=== PATIENT | female | born 1955 | race Caucasian/White ===

== ENCOUNTER → 2016-07-28 | Outpatient (CLI) | payer OTHER ==
[~2016-07-28] MED LIST: NA BICARBONATE 50 MEQ/50 ML VIAL ONE
--- NOTE | 2016-07-28 17:57 | US ---
Ultrasound-Guided Thyroid Biopsy/Fine-Needle Aspiration Indication: Increasing in size 2.9 cm left thyroid nodule Crosscutting Measure #226: Current tobacco user: No. Witnessed Consent: Witnessed informed consent was obtained after the risks, benefits, and alternativ es of ultrasound-guided thyroid biopsy were explained to the patient and all questions were answered. Procedure: Utilizing ultrasound guidance and sterile technique, the neck was prepped with ChloraPrep solution. Lidocaine with bicarbonate was used as local anesthesia. A 25-gauge needle was passed with ultrasound guidance into the left lobe 2.9 cm thyroid nodule 7 times (capillary technique). No hematoma on postprocedure imaging. Patient tolerated the procedure well without immediate complica tions. Discharge instructions were given. Impression: 1. Successful ultrasound-guided fine-needle aspiration of 2.9 cm left thyroid nodule. 2. Please refer to pending pathology report.
== END ==
LOC: FIMAGING 12:20
PROVIDERS: ATTEND Internal Medicine Endocrinology, Diabetes & Metabolism
PROC: 0GBG3ZX Excision of Left Thyroid Gland Lobe, Percutaneous Approach, Diagnostic (ICD-10-PCS; principal; 2016-07-28)
DX: E04.1 Nontoxic single thyroid nodule (principal)

== ENCOUNTER → 2016-08-07 | Outpatient (CLI) | payer OTHER ==
[~2016-08-07] MED LIST changes: +IOPAMIDOL (ISOVUE 370) 100 ML BTL IV ONE; -NA BICARBONATE 50 MEQ/50 ML VIAL ONE
--- NOTE | 2016-08-07 14:01 | CT ---
CT Abdomen and Pelvis Without and With Contrast History: Hematuria. Nonsmoker with no cancer history. Comparison: CT angiogram abdomen from May 03, 2011 and October 21, 2009, abdominal ultrasound of Sep. Technique: Axial unenhanced images were obtained through the abdomen and pelvis. Axial contrast-enhan abdirahman images were obtained through the abdomen with delayed images through the abdomen and pelvis follo wing the uneventful intravenous administration of 99 mL Isovue-370. Dose reduction techniques were ut ilized. Creatinine is 1.0. Findings: Abdomen: Basilar scarring is again noted. Heart size is normal. Fracture of the inferior most sternot cathy wire is again noted. A tiny hypodensity in the anterior left lobe of the liver is unchanged, too small to characterize. Th e gallbladder is surgically absent. The spleen, pancreas, and adrenals are normal. Hypodensities in t he kidneys are too small to characterize, with comparison to the previous CTs limited by variation of bolus timing. Cortical scarring in the superolateral right and lateral left kidney is grossly stable . No renal or ureteral stones are identified. There are no filling defects in the opacified portions of the collecting systems or ureters. Moderate stool is present in the colon. The colon and small bowel are normal caliber without evidence of obstruction. The visible portions of the appendix are normal. There is no free fluid or air. The aorta is normal caliber . The IVC, hepatic, portal, splenic, and superior mesenteric veins are pa tent. Degenerative change is present at the lumbosacral junction with mild spinal canal narrowing. Trace re trolisthesis of L2 on L3 is again noted. Transitional vertebra is present at the lumbosacral junction . Pelvis: No filling defects are identified in the bladder. No pathologically enlarged lymph nodes are identified. Surgical clips are present in the right groin. No aggressive osseous lesions are identif ied. Impression: 1. No visible etiology for the patient's hematuria. 2. Stable bilateral renal cortical scarring. 3. Tiny hypodensities in the kidneys bilaterally, too small to characterize, statistically likely to represent cysts. 4. Constipation. 5. Degenerative change in the spine. 6. Additional findings as above.
== END ==
LOC: CIMAGING 11:26
PROVIDERS: ATTEND Urology
DX: R31.29 Other microscopic hematuria (principal); K59.00 Constipation, unspecified
CPT/HCPCS: 74178-PO; Q9967

== ENCOUNTER → 2016-10-02 | Outpatient (CLI) | payer OTHER | LOC: FCPNEURO 20:00 | PROVIDERS: ATTEND Student in an Organized Health Care Education/Training Program | DX: G47.33 Obstructive sleep apnea (adult) (pediatric) (principal) ==

== ENCOUNTER 2016-10-08 22:31 | Emergency (ER) | payer OTHER ==
[2016-10-08 22:39] VITALS: RESP 16
--- NOTE | 2016-10-08 22:46 | EDPHY ---
H & P Stated Complaint: pt c/o L lateral foot pain - sudden onset, no known inj HPI/ROS: HPI CHIEF COMPLAINT: Left lateral foot pain, unable to bear weight and walk, unknown trauma HISTORY OF PRESENT ILLNESS: This patient very pleasant 60-year-old female significant past medical history for hypertension, aortic valve replacement mechanical, CVA, popliteal stent on the left leg, osteoporosis, arthritis, gallbladder disease and seizures, presents to the emergency room at 11 o'clock at night with left lateral foot pain. Patient states that she started developing pain in left lateral foot around 730 tonight progressively got worse. She does not remember any significant trauma specifically does not remember falling on it does not remember direct trauma. 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 She did not take any pain medicine prior to arrival she is requesting some pain medicine here in the emergency room. Of note on exam she has good DP pulse, good cap refill, warm extremity, there is tenderness palpation over the 4th and 5th metatarsal head. When she goes to bear weight on it she has exquisite pain. She denies knee pain, calf pain, leg swelling. Denies fever rash. Past Medical History: Extensive medical history including 2 open heart surgeries, CVA, aortic valve replacement mechanical, on aspirin, osteoporosis, arthritis, seizures, migraines, hypertension, left popliteal stent Past Surgical History: Multiple cardiac surgeries, left popliteal stent Social History: denies daily use of drugs alcohol tobacco products Family History: noncontributory PCP: [facility]. ARECHIGA REVIEW OF SYSTEMS: A comprehensive 10 point review of systems is otherwise negative aside from elements mentioned in the history of present illness. Exam Constitutional triage nursing summary reviewed, vital signs reviewed, awake/ alert. Eyes normal conjunctivae and sclera, EOMI, PERRLA. HENT normal inspection, atraumatic, moist mucus membranes, no epistaxis, neck supple/ no meningismus, no raccoon eyes. Respiratory clear to auscultation bilaterally, normal breath sounds, no respiratory distress, no wheezing. Cardiovascular rate normal, regular rhythm, no murmur, no edema, distal pulses normal. Gastrointestinal soft, non-tender, no rebound, no guarding, normal bowel sounds, no distension, no pulsatile mass. Genitourinary no CVA tenderness. Musculoskeletal left lower extremity: This is neurovascularly intact warm extremity good DP pulse, good cap refill, no evidence of cold extremity, no popliteal fullness or pain, no knee pain, she does have tender to palpation over the base of the 4th and 5th metatarsal head, there is no significant swelling visualize, ankle joint normal she does have full range of motion. no midline vertebral tenderness, full range of motion, no calf swelling, no tenderness of extremities, no meningismus, good pulses, neurovascularly intact. Skin pink, warm, & dry, no rash, skin atraumatic. Neurologic awake, alert and oriented x 3, AAOx3, moves all 4 extremities equally, motor intact, sensory intact, CN II-XII intact, normal cerebellar, normal vision, normal speech. Psychiatric normal mood/affect. Heme/Lymph/Immune no lymphadenopathy. Differential Diagnosis: Includes but is not limited to in a particular order, musculoskeletal injury, arthritis, metatarsal fracture, hairline fracture, dancer's fracture, no evidence of arterial insufficiency on exam Medical Decision Making: plan for this patient is to be given [place] for pain control here in the emergency room as well as an x-ray of her left foot. Then will re-evaluate. Re-evaluation: ED x-ray left foot: Negative for acute fracture. Imaging reviewed by myself. [id number]; re-evaluation at this time this patient was given [place] however does not have great pain relief. This time I did re-evaluate her she is warm extremity good cap refill, good pulse. She is focally tender over the lateral foot 4th and 5th metatarsal region it hurts worse with plantar flexion and internal rotation is possible she has a foot tendinitis or ligamentous injury. Plan for this patient due to having ongoing pain and IV will be established, will check basic blood work including creatinine of creatinine is good we can give her 30 mg IV Toradol which I think will benefit her from anti-inflammatory 0109: re-evaluation patient is resting comfortably she received 15 mg IV Toradol after she had a normal creatinine. This made a great improvement in her foot pain. She is resting comfortably she is agreeable for discharge. I did explain strict return precautions she understands return emergency room if she has worsening pain significant swelling, fever or redness to her foot. 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 Karen Garcia. She understands to call there tomorrow for an appointment. I will give her limited supply of [place] for acute pain control she be placed on crutches nonweightbearing until she sees Podiatry her x-ray was unrevealing here. It is possible she has a tendinitis. No evidence that there is vascular compromise or infection on exam. Source: Patient - Medical/Surgical History Hx Asthma: No Hx Chronic Respiratory Disease: No Hx Diabetes: No Hx Cardiac Disease: Yes Hx Renal Disease: No Hx Cirrhosis: No Hx Alcoholism: No Hx HIV/AIDS: No Hx Splenectomy or Spleen Trauma: No Other PMH: htn, migrains, heart issues, osteporosis, clotting disorder. two open hear surgeries (aortic valve replacement, and prostetic root). L knee angioplasty, cholecycstecomy.SEIZURE DISORDER/ARTHRITIS - Social History Smoking Status: Never smoked Constitutional: Initial Vital Signs Temperature (C) 36.3 C 10/08/16 22:35 Heart Rate 66 10/08/16 22:35 Respiratory Rate 16 10/08/16 22:35 Blood Pressure 142/73 H 10/08/16 22:35 O2 Sat (%) 93 10/08/16 22:35 O2 Delivery Mode Room Air Allergies/Adverse Reactions: vancomycin [Vancomycin] Allergy (Unknown, Verified 07/13/16 21:46) Home Medications: Medication Instructions Recorded Dabigatran Etexilate Mesylate 150 mg PO 02/14/12 [Pradaxa] Lisinopril 10/26/13 Propranolol HCl PRN 11/29/15 Sertraline HCl 11/29/15 Amoxicillin PRN 05/24/16 Aspirin 81mg (*) 05/24/16 Fluticasone Nasal 05/24/16 Inderal LA 05/24/16 Lamotrigine 05/24/16 Maxalt Ski Production Supervisor 05/24/16 Risedronate Sodium [Actonel] 05/24/16 Docusate Sodium [Colace 100 MG (*)] 10/08/16 Medical Decision Making - Data Points Laboratory Results: Laboratory Results 10/08/16 23:59 10/08/16 23:59 10/08/16 10/08/16 23:59 23:59 WBC 8.46 10^3/uL 10^3/uL (3.80-9.50) RBC 4.37 10^6/uL 10^6/uL (4.18-5.33) Hgb 14.4 g/dL g/dL (12.6-16.3) Hct 42.0 % % (38.0-47.0) MCV 96.1 fL fL (81.5-99.8) MCH 33.0 pg pg (27.9-34.1) MCHC 34.3 g/dL g/dL (32.4-36.7) RDW 12.2 % % (11.5-15.2) Plt Count 152 10^3/uL 10^3/uL (150-400) MPV 11.2 fL fL (8.7-11.7) Neut % (Auto) 64.4 % % (39.3-74.2) Lymph % (Auto) 23.2 % % (15.0-45.0) [place] % (Auto) 10.3 % % (4.5-13.0) Eos % (Auto) 1.2 % % (0.6-7.6) Baso % (Auto) 0.5 % % (0.3-1.7) Nucleat RBC Rel Count 0.0 % % (0.0-0.2) Absolute Neuts (auto) 5.46 10^3/uL 10^3/uL (1.70-6.50) Absolute Lymphs (auto) 1.96 10^3/uL 10^3/uL (1.00-3.00) Absolute Monos (auto) 0.87 10^3/uL H 10^3/uL (0.30-0.80) Absolute Eos (auto) 0.10 10^3/uL 10^3/uL (0.03-0.40) Absolute Basos (auto) 0.04 10^3/uL 10^3/uL (0.02-0.10) Absolute Nucleated RBC 0.00 10^3/uL 10^3/uL (0-0.01) Immature Gran % 0.4 % % (0.0-1.1) Immature Gran # 0.03 10^3/uL 10^3/uL (0.00-0.10) Sodium 142 mEq/L mEq/L (134-144) Potassium 3.9 mEq/L mEq/L (3.5-5.2) Chloride 104 mEq/L mEq/L (97-110) Carbon Dioxide 26 mEq/l mEq/l (22-31) Anion Gap 12 mEq/L mEq/L (8-16) BUN 32 mg/dL H mg/dL (7-23) Creatinine 1.1 mg/dL H mg/dL (0.6-1.0) Estimated GFR 50 Glucose 112 mg/dL H mg/dL (70-100) Calcium 10.3 mg/dL mg/dL (8.5-10.4) Medications Given: Discontinued Medications Hydrocodone Bitart/Acetaminophen ([place] 5/325) 1 tab PO EDNOW ONE Stop: 10/08/16 22:53 Last Admin: 10/08/16 22:56 Dose: 1 tab Hydrocodone Bitart/Acetaminophen ([place] 5/325) 1 tab PO EDNOW ONE Stop: 10/08/16 23:39 Last Admin: 10/08/16 23:39 Dose: 1 tab Sodium Chloride (Ns) 500 mls @ 0 mls/hr IV ONCE ONE PRN Reason: Wide Open Stop: 10/08/16 23:46 Last Admin: 10/09/16 00:34 Dose: 500 mls Ketorolac Tromethamine (Toradol) 30 mg IVP EDNOW ONE Stop: 10/08/16 23:46 Last Admin: 10/09/16 00:40 Dose: Not Given Ketorolac Tromethamine (Toradol) 15 mg IVP EDNOW ONE Stop: 10/09/16 00:30 Last Admin: 10/09/16 00:34 Dose: 15 mg Departure - Departure Disposition: Home, Routine, Self-Care Clinical Impression: Foot pain, left Condition: Good Instructions: Hydrocodone/Acetaminophen (By mouth) Additional Instructions: 1. Please keep Your foot elevated 2. please ice Your foot 3.Use crutches to help ambulate. 4. Please follow up with your foot doctor. Call there tomorrow for appointment. Referrals: Benjamin Acosta DPM [Doctor of Podiatric Medicine] - As per Instructions Velvet Ortiz MD [Primary Care Provider] - As per Instructions Karen Garcia DPM [Doctor of Podiatric Medicine] - As per Instructions
[2016-10-08] MEDS ORDERED: HYDROCODONE/APAP 5/325 TAB PO ONE ×2 (22:52→23:38)
[2016-10-08] MEDS ORDERED: HYDROCOD/APAP 5/325 PREPACK#6 BTL TAKEHOME ONE (22:52)
[2016-10-08] MEDS ORDERED: HYDROCODONE/APAP 5/325 TAB ONE (23:36)
[2016-10-08] MEDS ORDERED: KETOROLAC 30 MG/1 ML SDV IVP ONE (23:45)
[2016-10-08] MEDS ORDERED: NS 500 ML IV ONE (23:45)
[2016-10-09 00:18] LABS: % IMMATURE GRANULYOCYTES 0.4 % (0.0-1.1); ABSOLUTE IMMATURE GRANULOCYTES 0.03 10^3/uL (0.00-0.10); ADD DIFF? NO; ADD MORPH? NO; ADD SCAN? NO; ATYPICAL LYMPHOCYTE FLAG 0 (0-99); FRAGMENT RBC FLAG 0 (0-99); HEMOGLOBIN 14.4 g/dL (12.6-16.3); LEFT SHIFT FLG 0 (0-99); LIPEMIA HEMOLYSIS FLAG 90 (0-99); MEAN CELL HEMOGLOBIN CONCENTR. 34.3 g/dL (32.4-36.7); MEAN CELL VOLUME 96.1 fL (81.5-99.8); MEAN PLATELET VOLUME 11.2 fL (8.7-11.7); PLATELET CLUMPS FLAG 20 (0-99); PLATELET COUNT 152 10^3/uL (150-400); RED BLOOD CELL COUNT 4.37 10^6/uL (4.18-5.33); RED CELL DISTRIBUTION WIDTH 12.2 % (11.5-15.2)
[2016-10-09 00:27] LABS: ANION GAP 12 mEq/L (8-16); CALCIUM 10.3 mg/dL (8.5-10.4); CARBON DIOXIDE 26 mEq/l (22-31); CHLORIDE 104 mEq/L (97-110); CREATININE 1.1 mg/dL (0.6-1.0); GLOMERULAR FILTRATION RATE 50; GLUCOSE 112 mg/dL (70-100); POTASSIUM 3.9 mEq/L (3.5-5.2); SODIUM 142 mEq/L (134-144)
[2016-10-09] MEDS ORDERED: KETOROLAC 30 MG/1 ML SDV IVP ONE (00:29)
[2016-10-09] MEDS ORDERED: HYDROCOD/APAP 5/325 PREPACK#6 BTL TAKEHOME ONE (01:18)
[2016-10-09 01:32] VITALS: BP 134/55; PULSE 78; TEMP 97.5; O2SAT 95
== END 2016-10-09 01:31 | disposition home or self-care (01) ==
DX: M79.672 Pain in left foot (principal); I10 Essential (primary) hypertension; Z86.73 Personal history of transient ischemic attack (TIA), and cerebral infarction without residual deficits; Z79.82 Long term (current) use of aspirin
CPT/HCPCS: 96374; J1885

== ENCOUNTER → 2017-03-28 | Outpatient (CLI) | payer OTHER | LOC: CIMAGING 10:05 | PROVIDERS: ATTEND Internal Medicine | DX: Z12.31 Encounter for screening mammogram for malignant neoplasm of breast (principal) | CPT/HCPCS: G0202 ==

== ENCOUNTER 2017-04-23 16:36 | Observation (INO) | payer OTHER ==
[2017-04-23] MEDS ORDERED: ASPIRIN 81 MG CHEWABLE TAB PO ONE (16:40)
--- NOTE | 2017-04-23 16:41 | EDPHY ---
H & P Time Seen by Provider: 04/23/17 16:39 HPI/ROS: HPI Chest pain. 61-year-old female by private vehicle. This patient has a history of aortic valve replacement x2. She is currently on Pradaxa. She also has a history of takotsubo cardiomyopathy. She reports that yesterday she had a 1 minutes episode of chest pain which she describes as a squeezing lower mid chest discomfort with radiation to the back. She had associated shortness of breath at that time. Prior to coming to the emergency department today she was on the phone with the office of her mail censor, Dr. Jerson Spears, when she had another episode of the same pain which lasted 1-2 minutes. She was told to come to the emergency department immediately. This episode as well radiated to her back on both sides and she had associated shortness of breath. She has not had any chest pain or shortness of breath since coming to the emergency department. She is asymptomatic at this time. ROS: Constitutional: No fever, no chills. No weakness. Eyes: No discharge. No changes in vision. ENT: No sore throat. No nasal congestion or rhinorrhea. Respiratory: No cough. No shortness of breath. Cardiac: No chest pain, no palpitations. Gastrointestinal: No abdominal pain, no vomiting, no diarrhea. Genitourinary: No hematuria. No dysuria or increased frequency with urination. Musculoskeletal: No back pain. No neck pain. No myalgias or arthralgias. Skin: No rashes. Neurological: No headache. No focal weakness or altered sensation. Past medical history: Hypertension, migraines, endocarditis, osteoporosis, cholecystectomy, sleep apnea. As above. Primary care physician is Dr. Ortiz. Tool Grinder Operator External is Dr. Jerson Spears at the [facility]. Social history: She is here by herself. Nonsmoker. No alcohol. Physical Exam: General Appearance: Alert, no distress. This patient is responding to questions appropriately and in full sentences. This patient appears well- hydrated and well-nourished. Eyes: Pupils equal and round no pallor or injection. No lid edema, erythema or injection. Respiratory: There are no retractions, lungs are clear to auscultation with good air movement bilaterally. Cardiovascular: Regular rate and rhythm. Auscultated click from mechanical aortic valve. Holosystolic murmur. Gastrointestinal: Abdomen is soft and nontender, no masses, bowel sounds normal. No focal tenderness at McBurney's point. No Mars sign. Neurological: Motor sensory function is grossly intact. Cranial nerves are normal. Gait is normal. Skin: Warm and dry, no rashes. Musculoskeletal: Neck is supple and nontender. Extremities are symmetrical. All joints range without pain or impingement. Psychiatric: No agitation. No depression. Database: EKG: EKG time is 4:51 p.m.; EKG shows a narrow complex normal sinus rhythm with a ventricular rate of 53. Nonspecific T-wave abnormalities. The AL, QRS, QT intervals are within normal limits. There are no ST-T wave changes indicative of ischemic or injury pattern. No evidence of right heart strain. Interpreted by me. Imaging: Chest x-ray PA and lateral; the cardiac mediastinal silhouette is unremarkable. Sternotomy wires noted. No evidence of infiltrate or pneumothorax. No acute cardiopulmonary disease process noted. Interpreted by me. Procedures: Emergency department course: IV placed. She was placed on a monitor. Vital signs reviewed. EKG obtained and reviewed by myself. She was given 324 mg of chewed aspirin. 5:45 p.m., patient re-evaluated. Resting comfortably at this time. No chest pain. No shortness of breath. Results of her diagnostic testing in the emergency department discussed with her. Plan for admission discussed. She endorses. 5:50 p.m., spoke with on-call hospitalist, Dr. Gao. Patient accepted for admission to telemetry observation. 6:30 p.m., patient has remained stable and chest pain-free. She wishes to go to [facility] by private vehicle friend who will take her. Her remaining emergency department course under my care has been uneventful. She was transferred in stable condition. Differential Diagnosis: The differential diagnosis on this patient includes but is not limited to acute coronary syndrome, esophageal spasm, other noncardiac etiology. Pulmonary embolism, aortic dissection, myocardial infarction, pericarditis, myocarditis unlikely. This represents a partial list of diagnoses considered. These considerations are based on history, physical exam, past history, reassessment and diagnostic testing. Smoking Status: Never smoked Constitutional: Initial Vital Signs Temperature (C) 36.7 C 04/23/17 16:44 Heart Rate 59 L 04/23/17 16:44 Respiratory Rate 18 04/23/17 16:44 Blood Pressure 154/52 H 04/23/17 16:44 O2 Sat (%) 96 04/23/17 16:44 O2 Delivery Mode Room Air Allergies/Adverse Reactions: No Known Allergies Allergy (Unverified 04/23/17 16:42) Home Medications: Medication Instructions Recorded Dabigatran Etexilate Mesylate 150 mg PO 02/14/12 [Pradaxa] Lisinopril 10/26/13 Propranolol HCl PRN 11/29/15 Sertraline HCl 11/29/15 Aspirin 81mg (*) 05/24/16 Inderal LA 05/24/16 Lamotrigine 05/24/16 Risedronate Sodium [Actonel] 05/24/16 Medical Decision Making - Diagnostics Imaging Results: Imaging Impressions Chest X-Ray 04/23/17 17:43 Impression: 1. Minimal cardiomegaly. No failure. 2. Mild airways disease and minimal left basilar atelectasis. - Data Points Laboratory Results: Laboratory Results 04/23/17 16:53 04/23/17 16:53 04/23/17 04/23/17 04/23/17 16:53 16:53 16:53 WBC 5.67 10^3/uL 10^3/uL (3.80-9.50) RBC 4.35 10^6/uL 10^6/uL (4.18-5.33) Hgb 14.5 g/dL g/dL (12.6-16.3) Hct 41.9 % % (38.0-47.0) MCV 96.3 fL fL (81.5-99.8) MCH 33.3 pg pg (27.9-34.1) MCHC 34.6 g/dL g/dL (32.4-36.7) RDW 12.0 % % (11.5-15.2) Plt Count 173 10^3/uL 10^3/uL (150-400) MPV 11.1 fL fL (8.7-11.7) Neut % (Auto) 59.5 % % (39.3-74.2) Lymph % (Auto) 27.3 % % (15.0-45.0) [place] % (Auto) 10.4 % % (4.5-13.0) Eos % (Auto) 1.9 % % (0.6-7.6) Baso % (Auto) 0.7 % % (0.3-1.7) Nucleat RBC Rel Count 0.0 % % (0.0-0.2) Absolute Neuts (auto) 3.37 10^3/uL 10^3/uL (1.70-6.50) Absolute Lymphs (auto) 1.55 10^3/uL 10^3/uL (1.00-3.00) Absolute Monos (auto) 0.59 10^3/uL 10^3/uL (0.30-0.80) Absolute Eos (auto) 0.11 10^3/uL 10^3/uL (0.03-0.40) Absolute Basos (auto) 0.04 10^3/uL 10^3/uL (0.02-0.10) Absolute Nucleated RBC 0.00 10^3/uL 10^3/uL (0-0.01) Immature Gran % 0.2 % % (0.0-1.1) Immature Gran # 0.01 10^3/uL 10^3/uL (0.00-0.10) PT 14.9 SEC SEC (12.0-15.0) INR 1.20 H (0.83-1.16) APTT 46.8 SEC H SEC (23.0-38.0) D-Dimer 0.45 ug/mLFEU ug/mLFEU (0.00-0.50) Sodium 140 mEq/L mEq/L (134-144) Potassium 4.2 mEq/L mEq/L (3.5-5.2) Chloride 104 mEq/L mEq/L (97-110) Carbon Dioxide 26 mEq/l mEq/l (22-31) Anion Gap 10 mEq/L mEq/L (8-16) BUN 22 mg/dL mg/dL (7-23) Creatinine 1.0 mg/dL mg/dL (0.6-1.0) Estimated GFR 56 Glucose 102 mg/dL H mg/dL (70-100) Calcium 9.6 mg/dL mg/dL (8.5-10.4) Total Bilirubin 0.9 mg/dL mg/dL (0.1-1.4) AST 28 IU/L IU/L (14-46) ALT 33 IU/L IU/L (9-52) Alkaline Phosphatase 59 IU/L IU/L (38-126) Troponin I < 0.012 ng/mL ng/mL (0.000-0.034) NT-Pro-B Natriuret Pep 506 pg/mL H pg/mL (0-125) Total Protein 7.1 g/dL g/dL (6.3-8.2) Albumin 4.2 g/dL g/dL (3.5-5.0) Medications Given: Discontinued Medications Aspirin (Aspirin) 324 mg PO EDNOW ONE Stop: 04/23/17 16:41 Last Admin: 04/23/17 16:57 Dose: 324 mg Departure - Departure Disposition: [facility] Acute Clinical Impression: Chest pain
[2017-04-23 17:06] LABS: % IMMATURE GRANULYOCYTES 0.2 % (0.0-1.1); ABSOLUTE IMMATURE GRANULOCYTES 0.01 10^3/uL (0.00-0.10); ADD DIFF? NO; ADD MORPH? NO; ADD SCAN? NO; ATYPICAL LYMPHOCYTE FLAG 10 (0-99); FRAGMENT RBC FLAG 0 (0-99); HEMATOCRIT 41.9 % (38.0-47.0); HEMOGLOBIN 14.5 g/dL (12.6-16.3); LEFT SHIFT FLG 0 (0-99); LIPEMIA HEMOLYSIS FLAG 90 (0-99); MEAN CELL HEMOGLOBIN 33.3 pg (27.9-34.1); MEAN CELL HEMOGLOBIN CONCENTR. 34.6 g/dL (32.4-36.7); MEAN CELL VOLUME 96.3 fL (81.5-99.8); MEAN PLATELET VOLUME 11.1 fL (8.7-11.7); PLATELET CLUMPS FLAG 10 (0-99); PLATELET COUNT 173 10^3/uL (150-400); RED BLOOD CELL COUNT 4.35 10^6/uL (4.18-5.33)
[2017-04-23 17:24] LABS: INR 1.2 (0.83-1.16); PROTIME(PATIENT) 14.9 SEC (12.0-15.0)
[2017-04-23 17:25] LABS: APTT 46.8 SEC (23.0-38.0)
[2017-04-23 17:33] LABS: ALANINE AMINOTRANSFERASE 33 IU/L (9-52); ALBUMIN 4.2 g/dL (3.5-5.0); ALKALINE PHOSPHATASE 59 IU/L (38-126); ANION GAP 10 mEq/L (8-16); ASPARTATE AMINOTRANSFERASE 28 IU/L (14-46); BILIRUBIN,TOTAL 0.9 mg/dL (0.1-1.4); CALCIUM 9.6 mg/dL (8.5-10.4); CARBON DIOXIDE 26 mEq/l (22-31); CHLORIDE 104 mEq/L (97-110); GLOMERULAR FILTRATION RATE 56; GLUCOSE 102 mg/dL (70-100); POTASSIUM 4.2 mEq/L (3.5-5.2); SODIUM 140 mEq/L (134-144); TOTAL PROTEIN 7.1 g/dL (6.3-8.2)
[2017-04-23 17:36] LABS: TROPONIN I < 0.012 ng/mL (0.000-0.034)
[2017-04-23] MEDS ORDERED: ONDANSETRON DISINTEGRATING 4 MG TAB PO PRN (18:04)
[2017-04-23] MEDS ORDERED: ONDANSETRON 4 MG/2 ML VIAL IVP PRN (18:04)
[2017-04-23] MEDS ORDERED: ACETAMINOPHEN 325 MG TAB PO PRN (18:04)
--- NOTE | 2017-04-23 21:34 | CPEKG ---
Heart Rate: 54 RR Interval: 1111 P-R Interval: 192 QRSD Interval: 86 QT Interval: 468 QTC Interval: 444 P Dexter: 24 QRS Dexter: 15 T Wave Dexter: 100 EKG Severity - ABNORMAL ECG - EKG Impression: SINUS RHYTHM EKG Impression: PROBABLE ANTEROSEPTAL INFARCT, OLD EKG Impression: LATERAL LEADS ARE ALSO INVOLVED Electronically Signed By: Edvin Tafoya 24-Apr-2017 08:47:11
--- NOTE | 2017-04-23 21:37 | PDGENHP ---
History and Physical - Chief Complaint Acute chest pain - History of Present Illness Primary care provider: Dr. Velvet Ortiz Primary general i farmworker: Dr. Jerson Spears HPI: 61-year-old female presenting with acute chest pain characterized as pressure located in the substernal area radiating into her back with duration of symptoms several minutes, alleviated without any intervention. The symptoms have been onset of several months ago and had an intermittent, several minute duration, during that time. Symptoms most recently occurred 30 minutes prior to arrival. These were associated with some shortness of breath and this caused the patient to be alarmed. She also reports shortness of breath exacerbated by going up the stairs or with any physical exertion over the past year. She reports that she underwent a full investigation approximately 1 year ago, which did not yield any particular etiology. She has otherwise been taking all of her home medications, does not take an antacid. History Information - Allergies/Home Medication List Allergies/Adverse Reactions: No Known Allergies Allergy (Unverified 04/23/17 16:42) Home Medications: Dabigatran Etexilate Mesylate [Pradaxa] 150 mg PO 02/14/12 [Last Taken 05/24/16] Lisinopril 10/26/13 [Last Taken 05/23/16] Propranolol HCl PRN 11/29/15 [Last Taken 01/12/16 09:00] Sertraline HCl 11/29/15 [Last Taken 05/24/16] Aspirin 81mg (*) 05/24/16 [Last Taken 05/24/16] Inderal LA 05/24/16 [Last Taken 05/24/16] Lamotrigine 05/24/16 [Last Taken 05/24/16] Risedronate Sodium [Actonel] 05/24/16 [Last Taken 05/21/16] I have personally reviewed and updated: family history, medical history, social history, surgical history - Past Medical History Additional medical history: Bicuspid aortic valve with initial surgery including bioprosthetic, complicated by endocarditis, replaced as mechanical in 2008. Nonischemic cardiomyopathy. CVA in 2014. Peripheral arterial disease with left lower extremity stent. Hypertension. 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 Review of Systems Review of Systems: ROS: 10pt was reviewed & negative except for what was stated in HPI & below Constitutional: Reports: chills Cardiac: Reports: chest pain Respiratory: Reports: shortness of breath Physical Exam Physical Exam: Temp Pulse Resp BP Pulse Ox 36.5 C 72 12 122/71 H 96 04/23/17 20:00 04/23/17 20:00 04/23/17 20:00 04/23/17 20:00 04/23/17 20:00 Constitutional: no apparent distress, appears nourished, not in pain Eyes: PERRL, anicteric sclera, EOMI Ears, Nose, Mouth, Throat: moist mucous membranes, hearing normal, ears appear normal, no oral mucosal ulcers Cardiovascular: systolic murmur (3/6 at the right sternal border with closing snap), No irregularly irregular, No tachycardia, No edema Respiratory: no respiratory distress, no rales or rhonchi, clear to auscultation , No respiratory distress Gastrointestinal: normoactive bowel sounds, soft, non-tender abdomen, no palpable masses Skin: warm, normal color, no rashes or abrasions, no fluctuance, no induration, No mottled Neurologic: AAOx3, sensation intact bilaterally, No weakness Psychiatric: interacting appropriately, not anxious, not encephalopathic, thought process linear Lab Data & Imaging Review 04/23/17 16:53 04/23/17 16:53 WBC 5.67 10^3/uL (3.80-9.50) 04/23/17 16:53 RBC 4.35 10^6/uL (4.18-5.33) 04/23/17 16:53 Hgb 14.5 g/dL (12.6-16.3) 04/23/17 16:53 Hct 41.9 % (38.0-47.0) 04/23/17 16:53 MCV 96.3 fL (81.5-99.8) 04/23/17 16:53 MCH 33.3 pg (27.9-34.1) 04/23/17 16:53 MCHC 34.6 g/dL (32.4-36.7) 04/23/17 16:53 RDW 12.0 % (11.5-15.2) 04/23/17 16:53 Plt Count 173 10^3/uL (150-400) 04/23/17 16:53 MPV 11.1 fL (8.7-11.7) 04/23/17 16:53 Neut % (Auto) 59.5 % (39.3-74.2) 04/23/17 16:53 Lymph % (Auto) 27.3 % (15.0-45.0) 04/23/17 16:53 [place] % (Auto) 10.4 % (4.5-13.0) 04/23/17 16:53 Eos % (Auto) 1.9 % (0.6-7.6) 04/23/17 16:53 Baso % (Auto) 0.7 % (0.3-1.7) 04/23/17 16:53 Nucleat RBC Rel Count 0.0 % (0.0-0.2) 04/23/17 16:53 Absolute Neuts (auto) 3.37 10^3/uL (1.70-6.50) 04/23/17 16:53 Absolute Lymphs (auto) 1.55 10^3/uL (1.00-3.00) 04/23/17 16:53 Absolute Monos (auto) 0.59 10^3/uL (0.30-0.80) 04/23/17 16:53 Absolute Eos (auto) 0.11 10^3/uL (0.03-0.40) 04/23/17 16:53 Absolute Basos (auto) 0.04 10^3/uL (0.02-0.10) 04/23/17 16:53 Absolute Nucleated RBC 0.00 10^3/uL (0-0.01) 04/23/17 16:53 Immature Gran % 0.2 % (0.0-1.1) 04/23/17 16:53 Immature Gran # 0.01 10^3/uL (0.00-0.10) 04/23/17 16:53 PT 14.9 SEC (12.0-15.0) 04/23/17 16:53 INR 1.20 (0.83-1.16) H 04/23/17 16:53 APTT 46.8 SEC (23.0-38.0) H 04/23/17 16:53 D-Dimer 0.45 ug/mLFEU (0.00-0.50) 04/23/17 16:53 Sodium 140 mEq/L (134-144) 04/23/17 16:53 Potassium 4.2 mEq/L (3.5-5.2) 04/23/17 16:53 Chloride 104 mEq/L (97-110) 04/23/17 16:53 Carbon Dioxide 26 mEq/l (22-31) 04/23/17 16:53 Anion Gap 10 mEq/L (8-16) 04/23/17 16:53 BUN 22 mg/dL (7-23) 04/23/17 16:53 Creatinine 1.0 mg/dL (0.6-1.0) 04/23/17 16:53 Estimated GFR 56 04/23/17 16:53 Glucose 102 mg/dL (70-100) H 04/23/17 16:53 Calcium 9.6 mg/dL (8.5-10.4) 04/23/17 16:53 Total Bilirubin 0.9 mg/dL (0.1-1.4) 04/23/17 16:53 AST 28 IU/L (14-46) 04/23/17 16:53 ALT 33 IU/L (9-52) 04/23/17 16:53 Alkaline Phosphatase 59 IU/L (38-126) 04/23/17 16:53 Troponin I < 0.012 ng/mL (0.000-0.034) 04/23/17 16:53 NT-Pro-B Natriuret Pep 506 pg/mL (0-125) H 04/23/17 16:53 Total Protein 7.1 g/dL (6.3-8.2) 04/23/17 16:53 Albumin 4.2 g/dL (3.5-5.0) 04/23/17 16:53 Visualized and Interpreted Chest x-ray results: Yes Chest X-Ray results: no infiltrate, other (Left lower lobe atelectasis) Assessment & Plan Assessment: 61-year-old female presenting with acute chest pain and exertional shortness of breath in the setting of mechanical aortic valve Plan: 1. Chest pain. Acute, new problem this provider, further workup indicated. Potentially experiencing unstable angina, although her presentation of several months of intermittent symptoms is atypical without experiencing an overt complication -discussed with Dr. Jeronimo Duke at urgent care, he reports to me that there is some T-wave flattening however there is no EKG in the system for review -get EKG -get nuclear treadmill stress in a.m. -cycle cardiac enzymes -monitor on telemetry overnight -get echocardiogram -if the above workup is unremarkable, consider outpatient event monitor as well as empiric trial of PPI therapy 2. Mechanical aortic valve. Replaced in 2008, currently on systemic anticoagulation -reviewed outside records including 05/24/[address] Jerson Spears, reporting elevated gradient but normal valve function -recommend discussing echocardiogram results with Dr. Arthur while in a.m., I have sent him a message this evening to alert him of this patient's presentation -continue Pradaxa -keep patient NPO in case patient requires ALBERTO for further valve evaluation tomorrow 3. Peripheral arterial disease. Continue patient's anti-platelet medication Diet. Cardiac, NPO after midnight Prophylaxis. High risk patient, currently on Pradaxa Code. Full Disposition. Anticipated discharge 04/24/2017, pending further workup as outlined above.
[2017-04-23] MEDS ORDERED: LISINOPRIL 5 MG TAB PO SCH (22:18)
[2017-04-23] MEDS: lamoTRIgine 100 MG TAB PO SCH (22:59)
[2017-04-23] MEDS: SERTRALINE HCL 100 MG TAB PO SCH (22:59)
[2017-04-23] MEDS: DABIGATRAN ETEXILATE MESYL 150 MG CAP PO SCH (22:59)
[2017-04-24 03:48] LABS: % IMMATURE GRANULYOCYTES 0.3 % (0.0-1.1); ABSOLUTE IMMATURE GRANULOCYTES 0.02 10^3/uL (0.00-0.10); ADD DIFF? NO; ADD MORPH? NO; ADD SCAN? NO; ATYPICAL LYMPHOCYTE FLAG 0 (0-99); FRAGMENT RBC FLAG 0 (0-99); HEMATOCRIT 39.8 % (38.0-47.0); HEMOGLOBIN 13.6 g/dL (12.6-16.3); LEFT SHIFT FLG 0 (0-99); LIPEMIA HEMOLYSIS FLAG 90 (0-99); MEAN CELL HEMOGLOBIN 33.5 pg (27.9-34.1); MEAN CELL HEMOGLOBIN CONCENTR. 34.2 g/dL (32.4-36.7); MEAN PLATELET VOLUME 11.2 fL (8.7-11.7); PLATELET CLUMPS FLAG 0 (0-99); PLATELET COUNT 139 10^3/uL (150-400); RED BLOOD CELL COUNT 4.06 10^6/uL (4.18-5.33); RED CELL DISTRIBUTION WIDTH 12.3 % (11.5-15.2)
[2017-04-24 04:22] LABS: ALANINE AMINOTRANSFERASE 34 IU/L (9-52); ALBUMIN 3.7 g/dL (3.5-5.0); ALKALINE PHOSPHATASE 59 IU/L (38-126); ANION GAP 11 mEq/L (8-16); ASPARTATE AMINOTRANSFERASE 23 IU/L (14-46); BILIRUBIN,TOTAL 0.5 mg/dL (0.1-1.4); CALCIUM 9.8 mg/dL (8.5-10.4); CARBON DIOXIDE 25 mEq/l (22-31); CHLORIDE 106 mEq/L (97-110); CREATININE 1.1 mg/dL (0.6-1.0); GLOMERULAR FILTRATION RATE 50; GLUCOSE 88 mg/dL (70-100); POTASSIUM 4.4 mEq/L (3.5-5.2); SODIUM 142 mEq/L (134-144); TOTAL PROTEIN 6.5 g/dL (6.3-8.2)
[2017-04-24 04:33] LABS: TROPONIN I < 0.012 ng/mL (0.000-0.034)
[2017-04-24] MEDS ORDERED: PROPRANOLOL SR 80 MG CAP PO SCH (09:00)
[2017-04-24] MEDS ORDERED: ASPIRIN 81 MG CHEWABLE TAB PO SCH (09:00)
[2017-04-24] MEDS: SERTRALINE HCL 100 MG TAB PO SCH (10:04)
[2017-04-24] MEDS: lamoTRIgine 100 MG TAB PO SCH (10:04)
[2017-04-24] MEDS: DABIGATRAN ETEXILATE MESYL 150 MG CAP PO SCH (10:04)
[2017-04-24 11:46] VITALS: TEMP 97.9
--- NOTE | 2017-04-24 14:11 | ECHO ---
[email or web address] [address] [address] Main: [phone] Fax: Transthoracic Echocardiogram Name: WARD RANDLE MR#: [id number] Study Date: 04/24/2017 Study Time: 10:17 AM Date of : 1955 Age: 61 year(s) Height: 167.6 cm (66 in.) Weight: 66.23 kg (146 lb.) BSA: 1.75 m2 Gender: Female Examination: Echo Indication: Hx of AVR, Now presenting Chest Pressure, Chills Image Quality: Contrast: Requested by: Karen Masters BP: / Heart Rate: Rhythm: Normal sinus rhythm Indication: Hx of AVR, Now presenting Chest Pressure, Chills Procedure Staff Cnc Grinder: Irwin Palmer Reading Physician: Sd Rey Requesting Provider: Conclusions: Normal size left ventricle. Normal global systolic LV function. No regional wall motion abnormality. There is mild thickening of the mitral valve leaflets. Mild mitral valve regurgitation is present. The aortic valve is a bioprosthesis. Normal functioning aortic valve prosthesis. Mild prosthesis regurgitation. The tricuspid valve is normal in appearance and function. Trivial tricuspid valve regurgitation. No obvious vegetations. Consider ALBERTO if clinically indicated. Measurements: Chambers Valvular Assessment AV/MV Valvular Assessment TV/PV Normal Normal Normal Name Value Range Name Value Range Name Value Range Ao Shonna (MM): 2.0 cm (2.2 cm-3.7 AV Vmax: 2.78 m/s (1 m/s-1.7 TR Vmax: 2.35 mm/s ( - ) cm) m/s) TR PGmax: 22 mmHg ( - ) IVSd (2D): 1.0 cm (0.6 cm-1.1 AV maxP mmHg ( - ) syst. PAP: 27 mmHg ( - ) cm) AV meanP mmHg ( - ) PV Vmax: 1.07 m/s (0.6 m/s-0.9 LVDd (2D): 4.2 cm (3.9 cm-5.3 LVOT Vmax: 1.13 m/s (0.7 m/s-1.1 m/s) cm) m/s) PV PGmax: 5 mmHg ( - ) LVDs (2D): 2.7 cm (2.1 cm-4 FAB (Vmax): 0.7 cm2 ( - ) cm) FAB (VTI): 0.7 cm ( - ) LVPWd (2D): 0.9 cm ( - ) MV E Vmax: 1.15 m/s ( - ) LVOTd 1.5 cm 1.5 cm mm MV A Vmax: 1.07 m/s ( - ) LVEF (2D): 67 (>=54 %) MV E/A: 1.07 ( - ) Continued Measurements: Patient: WARD RANDLE Study Date: 04/24/2017 Page 1 of 2 10:17 AM Chambers Valvular Assessment AV/MV Valvular Assessment TV/PV Name Value Name Value Name Value LADs Lon.9 cm MV E/E' Septal: 38.10 CVP (est.): 5 mmHg LA Area: 15.1 cm2 Findings: Left Ventricle: Normal size left ventricle. Normal global systolic LV function. EF is 67 %. No regional wall motion abnormality. Right Ventricle: Normal size right ventricle. Normal RV function. Left Atrium: The left atrium is normal in size. Right Atrium: The right atrium is normal in size. Mitral Valve: There is mild thickening of the mitral valve leaflets. Mild mitral valve regurgitation is present. Aortic Valve: The aortic valve is a bioprosthesis. Normal functioning aortic valve prosthesis. The prosthetic aortic valve is normal. The Aortic Valve Vmax is 2.9 m/s with a Mean PG of 19 mmHg and a max PG of 35mmHg. Mild prosthesis regurgitation. Tricuspid Valve: The tricuspid valve is normal in appearance and function. Trivial tricuspid valve regurgitation. Pulmonic Valve: The pulmonic valve is normal in appearance and function. Aorta: The aorta is normal. Pericardium: No pericardial effusion. (No Signature Object) Patient: WARD RANDLE Study Date: 04/24/2017 Page 2 of 2 10:17 AM D:_[id number]
[2017-04-24] MEDS ORDERED: REGADENOSON 0.4 MG/5 ML SYR IVP ONE (14:12)
--- NOTE | 2017-04-24 15:02 | ASMTCMCOM ---
CM Note CM Note Notes: Reviewed chart, spoke w/RN. No case management d/c needs identified d/t pt age, activity levels prior to admission and lack of PT/OT evals. Case Management d/c poc: Home independent w/follow up as directed by MD. Case Management available if needs change. Date Signed: 04/24/2017 03:01 PM Electronically Signed By:Emily Procotr RN
--- NOTE | 2017-04-24 15:19 | CPR ---
[f rep st] NONINVASIVE CARDIAC PROCEDURE REPORT PROCEDURE PERFORMED: Nuclear Lexiscan stress test. ORDERING PHYSICIAN: Dr. Cecilio Gao. REASON FOR TEST: Chest discomfort, epigastric discomfort radiating to back. FINDINGS: Resting EKG shows a sinus bradycardia with no ischemic changes. Resting heart rate is 52, resting blood pressure 138/92, oxygen saturation 91%. LEXISCAN PORTION: Lexiscan was injected, followed by saline flush. Cardiolite was then injected, fo llowed by saline flush per protocol. There were no ischemic changes noted on EKG. Peak heart rate w as 73, oxygen saturation 98%. No rhythm or ischemic changes noted on EKG. RECOVERY: Resting recovery blood pressure 136/82, resting heart rate 67, oxygen saturation 97%. She completely resolved any symptoms of abdominal discomfort once caffeine was given. At this time, she currently is stable for nuclear imaging. /[id number]/MODL
[2017-04-24 17:10] VITALS: BP 155/72; PULSE 56; RESP 17; O2SAT 95
[2017-04-24] MEDS ORDERED: CHOLECALCIFEROL VIT D3 2,000 UNITS TAB/CAP PO SCH (21:00)
[2017-04-24] MEDS ORDERED: DOCUSATE SODIUM 100 MG CAP PO SCH (21:00)
--- NOTE | 2017-04-25 05:08 | GDS ---
[f rep st] DISCHARGE SUMMARY DISCHARGE DIAGNOSES: 1. Acute chest pain, thought not cardiac. 2. History of artificial valve replacement. 3. History of endocarditis. 4. Hypertension. HISTORY OF PRESENT ILLNESS: A 61-year-old female with a history of artificial valve replacement, on chronic anticoagulation, who presents with several months of intermittent chest pain. For details of the patient's initial presentation, please see the history and physical dated 04/23/2017. CONSULTATIVE SERVICES: Include Cardiology. PROCEDURES: 1. On 04/24/2017, patient had a transthoracic echocardiogram that showed normal functioning artifici al valve with no concerns for vegetation, normal left ventricular systolic function and intracardiac pressures. 2. On 04/24/2017, patient underwent a nuclear cardiac stress test that showed no inducible ischemia, normal estimated ejection fraction, and a suspected infarction in the inferolateral left ventricular wall. HOSPITAL COURSE BY ISSUE: 1. Chest pain. Patient had intermittent symptoms for several weeks prior to presentation. Troponin and EKG were negative at presentation. Patient was admitted to the PCU for cardiac observation afte r rule out was sent for Cardiolite cardiac stress test, which was negative for inducible ischemia. T here was an inferolateral area concerning for possible infarction, was reviewed by Cardiology, not fe lt to necessitate inpatient cardiac catheterization. Patient will have this imaging reviewed by her outpatient mail handler assistant, Dr. Spears, and decision to be made about outpatient cardiac catheterization i n the future. Patient will be continued on her normal cardiac medications without change. 2. Artificial valvular replacement. Patient is maintained on her outpatient anticoagulation regimen . Echocardiogram shows normal function of the valve without concerns of agitation. She will be cont inued on her home medications without change. 3. Hypertension. Patient's blood pressures remained well controlled during this hospitalization. A gain, no changes will be made to her medications at disposition. MEDICATIONS: At the time of disposition, please reference med rec printed on 04/24/2017. PENDING STUDIES: At the time of this dictation are none. FOLLOWUP APPOINTMENTS: Include with Dr. Spears in the next 2-4 weeks for followup of her chest pain pr esentation and discussions related to what were presumed to be artifactual findings on her Lexiscan t esting. I spent greater than 30 minutes in the planning and coordination of this discharge. /[id number]/MODL
--- NOTE | 2017-04-25 12:06 | ASDISCHSUM ---
Discharge Information Plan Status:Home with No Needs Medically Cleared to Leave:04/24/2017 Discharge Date:04/24/2017 05:50 PM CM D/C Disposition:Home, Routine, Self-Care ADT D/C Disposition:Home, Routine, Self-Care Projected Discharge Date:04/24/2017 12:00 AM Transportation at D/C:Friend Discharge Delay Reason: Follow-Up Date:04/24/2017 12:00 AM Discharge Slot: Final Diagnosis: Placement Information Patient Contact Information Contact Name:AILINROGERAARON Relationship:Halie Address: Home Phone: City: [facility] Phone: [facility]/Home Comfort Zones Code: Email: Financial Information Financial Class:HMO and PPO Plans Primary Plan Desc:H[employer] Primary Plan Number:[id number] Secondary Plan Desc: Secondary Plan Number: Assessment Information [facility] CM Progress Note CM Note CM Note Notes: Reviewed chart, spoke w/RN. No case management d/c needs identified d/t pt age, activity levels prior to admission and lack of PT/OT evals. Case Management d/c poc: Home independent w/follow up as directed by . Case Management available if needs change. Date Signed: 04/24/2017 03:01 PM Electronically Signed By:Emily Proctor RN Intervention Information
--- NOTE | 2017-04-26 08:28 | CPEKG ---
Heart Rate: 53 RR Interval: 1132 P-R Interval: 184 QRSD Interval: 80 QT Interval: 460 QTC Interval: 432 P [place]: 42 QRS [place]: 13 T Wave [place]: 114 EKG Severity - ABNORMAL ECG - EKG Impression: SINUS RHYTHM EKG Impression: NONSPECIFIC T ABNORMALITIES, LATERAL LEADS Electronically Signed By: Edvin Tafoya 26-Apr-2017 12:47:58
[2017-04-29] MEDS ORDERED: RISEDRONATE SODIUM 35 MG TAB PO SCH (07:00)
== END 2017-04-24 17:50 | disposition home or self-care (01) ==
LOC: CED 16:36 → CEDHOLD 17:53 → F2W 19:53
PROVIDERS: ADMIT Internal Medicine; ATTEND Internal Medicine
DX: R07.9 Chest pain, unspecified (principal); Z95.4 Presence of other heart-valve replacement; Z86.79 Personal history of other diseases of the circulatory system; I10 Essential (primary) hypertension
CPT/HCPCS: 71010; 78452; 93005; 93017; 93306; A9500; G0378; 80053-PO; 83880-PO; 84484-PO; 85025-PO; 85378-PO; 85610-PO; 85730-PO; J2785

== ENCOUNTER → 2017-06-27 | Outpatient (CLI) | payer OTHER | LOC: BMCIMAGING 10:53 | PROVIDERS: ATTEND Internal Medicine | DX: J43.9 Emphysema, unspecified (principal) ==

== ENCOUNTER → 2017-07-10 | Outpatient (CLI) | payer OTHER | LOC: CIMAGING 13:42 | PROVIDERS: ATTEND Podiatrist Foot & Ankle Surgery | DX: M19.071 Primary osteoarthritis, right ankle and foot (principal); M20.21 Hallux rigidus, right foot | CPT/HCPCS: 73630-PO ==

== ENCOUNTER → 2017-07-11 | Outpatient (CLI) | payer OTHER | LOC: BMCIMAGING 15:08 | PROVIDERS: ATTEND Orthopaedic Surgery Hand Surgery | DX: M79.645 Pain in left finger(s) (principal) ==

== ENCOUNTER 2017-07-25 10:57 | Day surgery (SDC) | payer OTHER ==
[2017-07-25] MEDS ORDERED: LIDOCAINE 1% 2 ML INJ ID PRN (11:15)
[2017-07-25] MEDS ORDERED: LR 1,000 ML IV ONE (11:15)
[2017-07-25] MEDS ORDERED: BUPIVACAINE 0.5% 30 ML SDV ONE (11:27)
[2017-07-25] MEDS ORDERED: LIDOCAINE 2% 5 ML SDV ONE (11:28)
[2017-07-25] MEDS ORDERED: ceFAZolin 1 GM/5 ML SYR ONE (11:28)
[2017-07-25] MEDS ORDERED: MIDAZOLAM 2 MG/2 ML VIAL IVP ONE (11:32)
--- NOTE | 2017-07-25 11:32 | PDANEPAE ---
ROSIE History of Present Illness 61 yo for bunion s/p avr nader ANE Past Medical History - Cardiovascular History Hx Hypertension: Yes Hx Arrhythmias: No Hx Chest Pain: No Hx Coronary Artery / Peripheral Vascular Disease: Yes Hx CHF / Valvular Disease: Yes Hx Palpitations: No Cardiovascular History Comment: Aortic aneurysm . endocarditis '. On Pradaxa and ASA due to mechanical valve. - Pulmonary History Hx COPD: No Hx Asthma/Reactive Airway Disease: No Hx Recent Upper Respiratory Infection: No Hx Oxygen in Use at Home: No Hx Sleep Apnea: Yes Sleep Apnea Screening Result - Last Documented: Positive Pulmonary History Comment: "out of breath"-Severe NADER:scheduled for sleep study at home in Jul 30 and . Using "oral appliance" x 45 days. - Neurologic History Hx Cerebrovascular Accident: Yes Hx Seizures: Yes Hx Dementia: No Neurologic History Comment: CVA "between 2 open heart sx". on Lamotrigine for silent seizures. - Endocrine History Hx Diabetes: No - Renal History Hx Renal Disorders: No - Liver History Hx Hepatic Disorders: No - Neurological & Psychiatric Hx Hx Neurological and Psychiatric Disorders: Yes Neurological / Psychiatric History Comment: sl scoliosis-occ low back/shoulder pain OA-vertebrae. 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 - Other Health History Other Health History: R alexa. - Hx of "clot breaking off into 3 pieces: behind knee,behind eye and into heart" - Chronic Pain History Chronic Pain: Yes (right toe) - Surgical History Prior Surgeries: mechanical aortic valve-07-31. pig -aortic valve/root 06-27. septoplasty. angioplasties -Dr Ryan VELEZ Review of Systems Review of Systems: - Exercise capacity METS (RN): 4 METS ANE Patient History - Allergies Allergies/Adverse Reactions: No Known Allergies Allergy (Verified 07/24/17 15:37) - Home Medications Home Medications: Aspirin [Aspirin 81mg (*)] 81 mg PO DAILY 04/23/17 [Last Taken 07/21/17 09:00] Cholecalciferol (Vitamin D3) [Vitamin D3] 5,000 unit PO HS 04/23/17 [Last Taken 04/22/17 21:00] Dabigatran Etexilate Mesyl [Pradaxa 150 MG (*)] 150 mg PO BID 04/23/17 [Last Taken 07/23/17 09:00] Lisinopril [Prinivil] 5 mg PO HS 04/23/17 [Last Taken 04/22/17] Propranolol Sr [Inderal LA 80mg (*)] 80 mg PO DAILY 04/23/17 [Last Taken 09:00] lamoTRIgine [Lamotrigine] 100 mg PO BID 04/23/17 [Last Taken 04/23/17 09:00] Modafinil 07/24/17 [Last Taken Unknown] - Smoking Hx Smoking Status: Never smoked ANE Labs/Vital Signs - Vital Signs Height: 5 ft 5 in Weight: 65.998 kg ANE Physical Exam - Airway Neck exam: FROM Mallampati Score: Class 2 Mouth exam: normal dental/mouth exam - Pulmonary Pulmonary: no respiratory distress - Cardiovascular Cardiovascular: regular rate and rhythym - ASA Status ASA Status: III ANE Anesthesia Plan Anesthesia Plan: MAC
[2017-07-25 11:48] VITALS: PULSE 58
[2017-07-25] MEDS ORDERED: PROPOFOL/EMULSION 500 MG/50 ML BOTTLE IV ONE ×2 (11:52→13:35)
[2017-07-25] MEDS ORDERED: ceFAZolin 2 GM/SWFI 2 GM/20 ML SYR IVP ONE (12:01)
--- NOTE | 2017-07-25 12:01 | PDHPUP ---
History & Physical Update H&P update statement: This history and physical update is based on an assessment of the patient which was completed after admission or registration (within 24 hours), but prior to the surgery/procedure. H&P update: H&P reviewed & patient examined
[2017-07-25] MEDS ORDERED: MIDAZOLAM 2 MG/2 ML VIAL ONE (12:37)
[2017-07-25] MEDS ORDERED: DEXAMETHASONE 4 MG/ML VIAL ONE (13:01)
[2017-07-25] MEDS ORDERED: NALOXONE HCL 0.4 MG/ML INJ IVP PRN ×2 (14:02→14:08)
[2017-07-25] MEDS ORDERED: fentaNYL 100 MCG/2 ML INJ IVP PRN (14:08)
[2017-07-25] MEDS ORDERED: ONDANSETRON 4 MG/2 ML VIAL IVP PRN (14:08)
[2017-07-25] MEDS ORDERED: KETAMINE 200 MG/20 ML VIAL ONE (14:19)
[2017-07-25] MEDS ORDERED: OXYCODONE/APAP 5/325 TAB PO PRN (14:43)
--- NOTE | 2017-07-25 14:55 | POSTOPPROG ---
Post Op Note Date of Operation: 07/25/17 Surgeon: Karen Garcia Obstetrician Gynecologist: None Anesthesiologist: Dr. Giron Anesthesia: IV Sedation Pre-op Diagnosis: Right foot Hallux Rigidus Post-op Diagnosis: Right foot Hallux Rigidus Indication: Painful arthritic 1st MPJ Procedure: Right foot 1st MPJ Cheilectomy with 1st MPJ Total Arthrosurface implant Inf/Abcess present in the surg proc area at time of surgery?: No Depth: Deep Incisional (Fascial) EBL: Minimal Complications: Small dorsal proximal phalanx fracture upon placement of the distal component screw.
[2017-07-25 15:21] VITALS: RESP 20
[2017-07-25 15:23] VITALS: TEMP 97.7
[2017-07-25 15:48] VITALS: BP 116/56; O2SAT 93
--- NOTE | 2017-07-26 02:09 | GOP ---
[f rep st] OPERATIVE REPORT DATE OF OPERATION: SURGEON: Karen Garcia DPM ANESTHESIA: Local with monitored anesthesia care. ANESTHESIOLOGIST: Dr. Alcaraz PREOPERATIVE DIAGNOSIS: Right foot hallux rigidus. POSTOPERATIVE DIAGNOSIS: Right foot hallux rigidus. PROCEDURE PERFORMED: Right foot first metatarsophalangeal joint cheilectomy with first metatarsophal angeal joint total Arthrosurface implant. FINDINGS: ESTIMATED BLOOD LOSS: Minimal. INDICATIONS: Painful arthritic first metatarsophalangeal joint, right foot. DESCRIPTION OF PROCEDURE: Under mild sedation, the patient was brought into the operating room and p laced on the operating table in supine position. Following IV sedation, local anesthesia was obtaine d about the right foot using 5 cc of 2% lidocaine plain and 15 cc of 0.5% Marcaine plain. The foot w as then scrubbed, prepped, and draped in the usual aseptic manner. A sterile pneumatic ankle tourniq uet was placed about the right ankle. The foot was exsanguinated and tourniquet inflated to 225 mmHg . Attention was then directed to the 1st metatarsophalangeal joint, where an incision was made media l and parallel to the tendon of the extensor hallucis longus. The incision was deepened through subc utaneous tissue, with care taken to identify and retract all vital neurovascular structures. All ble eders were cauterized as necessary. A linear capsulotomy was then performed over the 1st metatarsoph alangeal joint. The periosteum and capsule were reflected medially and laterally to expose the 1st m etatarsal head at the operative site. There was moderate synovitis present in the joint. The wound was irrigated with copious sterile saline and Ancef irrigation. The excessive osteophyte formation w as removed with a rongeur. A McGlamry elevator was used to free the joint and the sesamoids plantarl y. At this point, the guidewire for the Arthrosurface implant was then placed through the 1st metata rsal head and proximal into the 1st metatarsal shaft. This was evaluated under fluoroscopy and found to be in perfect position. At this point, the bone was reamed to appropriate position and the screw placed. The 1st metatarsal head was then reamed to the level of the screw. Irrigation was performe d. At this point, the trial was placed and found to be in a good position. Attention was then directed to the proximal phalanx, where the guidewire was placed into the base of the proximal phalanx. The position was evaluated under fluoroscopy and found to be in good position. This was drilled to the appropriate position and tapped. The distal component was placed. The tri als for the 1st metatarsal head and the proximal phalanx were placed. The joint was found to be tigh t, and there was still available bone to be removed from the proximal phalanx base. At this point, i t was decided to remove the trials and remove more bone from the proximal phalanx. The same techniqu e was used where the guidewire was placed and drilled, tapped, and irrigated. The trial was then ins erted into the proximal phalanx. Upon the last turn into the proximal phalanx, the dorsal cortex of the proximal phalanx fractured. The distal component was found to be well seated into the proximal p halanx and was not tightened any further. The wound was all irrigated with copious sterile saline An cef irrigation. Trials were placed and the joint motion found to be perfect. At this point, the tri als were removed and the wound irrigated with copious sterile saline Ancef irrigation. The 1st metat arsal head implant was then placed and a mallet used to tamp the 1st metatarsal head implant into the screw in the 1st metatarsal head. The poly was then placed into the proximal phalanx implant. Rang e of motion was evaluated and fluoroscopy used to evaluate position of the implant. It was found to be in appropriate position, with great range of motion of the joint. The wound was then irrigated ag ain with copious sterile saline Ancef irrigation. DBM bone putty was placed about the cortical fract ure of the proximal phalanx. The redundant dorsal capsule was resected with a 15 blade. The periost eum and capsule were repaired with 3-0 Vicryl. The subcuticular layer was repaired with 4-0 Monocryl , and the skin with 4-0 Prolene in a running subcuticular suture technique. Mastisol, Steri-Strips, Xeroform, 4 x 4 gauze, cast padding, Deuce wrap was applied. The tourniquet was deflated at 80 minutes . A prompt hyperemic response was noted to all digits of the right foot. The patient was then transferred to the recovery room with vital signs stable and vascular status int act. Following a period of postoperative monitoring, the patient will be discharged home and advised to ice and elevate her foot. She is advised to keep the dressing clean, dry, and intact. She is we ightbearing as tolerated in the walking boot. She will follow up with me within the next week for a wound check and dressing change. INJECTABLES: A preop injection of 5 cc of 2% lidocaine plain and 15 cc of 0.5% Marcaine plain. A po stop injection of 10 cc of 0.5% Marcaine plain. 1 cc dexamethasone phosphate. HEMOSTASIS: Pneumatic ankle tourniquet at 225 mmHg for 80 minutes. /[id number]/MODL
--- NOTE | 2017-07-26 09:14 | POSTANESTH ---
Post Anesthetic Evaluation Cardiovascular Status: Normal, Stable Respiratory Status: Tx Decrease in SpO2 Level of Consciousness/Mental Status: Can Participate in Eval Pain Control: Adequate, Prn Tx Ordered Nausea/Vomiting Control: Adequate, Prn Tx Ordered Complications Possibly Related to Anesthesia: None Noted
== END 2017-07-25 16:48 | disposition home or self-care (01) ==
LOC: FSGY 10:57
PROVIDERS: ATTEND Podiatrist Foot & Ankle Surgery
PROC: BQ1X1ZZ Fluoroscopy of Right Foot/Toe Joint using Low Osmolar Contrast (ICD-10-PCS; principal; 2017-07-25 12:00)
PROC: 0SRM0JZ Replacement of Right Metatarsal-Phalangeal Joint with Synthetic Substitute, Open Approach (ICD-10-PCS; principal; 2017-07-25 12:00)
PROC: 0SNM0ZZ Release Right Metatarsal-Phalangeal Joint, Open Approach (ICD-10-PCS; principal; 2017-07-25 12:00)
DX: M20.21 Hallux rigidus, right foot (principal); M79.645 Pain in left finger(s); I10 Essential (primary) hypertension; Z95.2 Presence of prosthetic heart valve; Z86.73 Personal history of transient ischemic attack (TIA), and cerebral infarction without residual deficits
CPT/HCPCS: C1713; J1100; J2250; J2704

== ENCOUNTER → 2017-09-12 | Outpatient (CLI) | payer OTHER | LOC: CIMAGING 11:50 | PROVIDERS: ATTEND Podiatrist Foot & Ankle Surgery | DX: Z47.1 Aftercare following joint replacement surgery (principal); Z96.698 Presence of other orthopedic joint implants | CPT/HCPCS: 73630-PO ==

== ENCOUNTER 2017-11-19 15:04 | Emergency (ER) | payer OTHER ==
--- NOTE | 2017-11-19 15:10 | EDPHY ---
H & P Time Seen by Provider: 11/19/17 15:10 HPI/ROS: HPI CHIEF COMPLAINT: Epistaxis HISTORY OF PRESENT ILLNESS: Patient is 61-year-old female, she has aortic valve replacement, on Coumadin, she just recently started back up on Coumadin get INR between 2 and 3. She is currently on Pradaxa to bridge her. She developed a nose bleed around 11:00 a.m. Patient states that she has had a light trickle out of both nares since around 11:00 a.m.. However arriving to the emergency room it has subsided and stopped. Patient is curious about what her INR is. She denies any other complaints. Denies chest pain shortness of breath or fever. Past Medical History: Extensive cardiac history including aortic valve replacement, history of CVA, hypertension, seizures, migraines, stents Past Surgical History: Aortic valve replacement, left popliteal stent Social History: Denies daily use drugs alcohol tobacco. Family History: Noncontributory ROS REVIEW OF SYSTEMS: A comprehensive 10 point review of systems is otherwise negative aside from elements mentioned in the history of present illness. Exam Constitutional appears well nontoxic no acute distress, triage nursing summary reviewed, vital signs reviewed, awake/alert. Eyes normal conjunctivae and sclera, EOMI, PERRLA. HENT bilateral nares: Anterior both nares there is some dry crusted blood. No obvious active bleed. normal inspection, atraumatic, moist mucus membranes, no epistaxis, neck supple/ no meningismus, no raccoon eyes. Respiratory clear to auscultation bilaterally, normal breath sounds, no respiratory distress, no wheezing. Cardiovascular rate normal, regular rhythm, no murmur, no edema, distal pulses normal. Gastrointestinal soft, non-tender, no rebound, no guarding, normal bowel sounds, no distension, no pulsatile mass. Genitourinary no CVA tenderness. Musculoskeletal no midline vertebral tenderness, full range of motion, no calf swelling, no tenderness of extremities, no meningismus, good pulses, neurovascularly intact. Skin pink, warm, & dry, no rash, skin atraumatic. Neurologic awake, alert and oriented x 3, AAOx3, moves all 4 extremities equally, motor intact, sensory intact, CN II-XII intact, normal cerebellar, normal vision, normal speech. Psychiatric normal mood/affect. Heme/Lymph/Immune no lymphadenopathy. Differential Diagnosis: Includes but is not limited to in a particular order: Supratherapeutic INR, epistaxis due to being on Coumadin and Pradaxa. Medical Decision Making: Plan for this patient will check INR, additionally will give 2 squirts of Afrin up each Nare, a placed nasal clamp, observed for recurrence of bleed. Re-evaluation: 1557: INR checked: 5.11 1600: Recommend the patient that she hold her Coumadin next 2 doses. And follows up on Sunday with her primary care doctor for INR check. 1600: Went over her INR with her. Additionally patient understands to follow up with her primary care doctor have repeat INR check. Return precautions discussed about returning nose bleed. Procedure: Epistaxis control. After verbal consent was obtained, Afrin was applied to both nares. The anterior epistaxis was identified. The patient was treated with First, Afrin, however this did not result in complete termination of bleeding. She then had Silver-Nitrate Cauterization of both anterior Nares. She tolerated this very well. Following the procedure the patient was re-examined and the bleeding was well controlled. The patient tolerated the procedure well. The procedure was performed by myself. 1701: Patient re-evaluated. She now has some bleeding from ant nare on right. Will Place Packing. Procedure: Epistaxis control. After verbal consent was obtained,. The Right anterior epistaxis was identified. The patient was treated with 7.5CM Right A/P Rhino-Rocket. Following the procedure the patient was re-examined and the bleeding was well controlled. The patient tolerated the procedure well. The procedure was performed by myself. 1724: Re-eval. good Hemostasis. Patient understands to return in 24 hour to have packing removed. Source: Patient - Medical/Surgical History Hx Asthma: No Hx Chronic Respiratory Disease: No Hx Diabetes: No Hx Cardiac Disease: Yes Hx Renal Disease: No Hx Cirrhosis: No Hx Alcoholism: No Hx HIV/AIDS: No Hx Splenectomy or Spleen Trauma: No Other PMH: htn, migrains, heart issues, osteporosis, clotting disorder. two open hear surgeries (aortic valve replacement, and prostetic root). L knee angioplasty, cholecycstecomy.SEIZURE DISORDER/ARTHRITIS, sleep apnea with CPAP - Social History Smoking Status: Never smoked Constitutional: Initial Vital Signs Temperature (C) 37.2 C 11/19/17 15:09 Heart Rate 58 L 11/19/17 15:09 Respiratory Rate 16 11/19/17 15:09 Blood Pressure 157/77 H 11/19/17 15:09 O2 Sat (%) 94 11/19/17 15:09 O2 Delivery Mode Room Air,[place] Allergies/Adverse Reactions: No Known Allergies Allergy (Verified 07/24/17 15:37) Home Medications: Medication Instructions Recorded Aspirin [Aspirin 81mg (*)] 81 mg PO DAILY 04/23/17 Cholecalciferol (Vitamin D3) 5,000 unit PO HS 04/23/17 [Vitamin D3] Dabigatran Etexilate Mesyl 150 mg PO BID 04/23/17 [Pradaxa 150 MG (*)] Lisinopril [Prinivil] 5 mg PO HS 04/23/17 Propranolol Sr [Inderal LA 80mg 80 mg PO DAILY 04/23/17 (*)] lamoTRIgine [Lamotrigine] 100 mg PO BID 04/23/17 Modafinil 07/24/17 Coumadin 11/19/17 Flonase Nasal [place] 11/19/17 Lexapro 11/19/17 Pradaxa 11/19/17 Medical Decision Making - Data Points Laboratory Results: 11/19/17 15:25 PT 45.5 SEC H SEC (12.0-15.0) INR 5.11 H* (0.83-1.16) Departure - Departure Disposition: Home, Routine, Self-Care Clinical Impression: Epistaxis, Supratherapeutic INR Condition: Good Instructions: Nosebleed (ED), Elevated INR (ED) Additional Instructions: 1. You have a recurrence of her nose bleed hold direct pressure for 20 min tilt her head forward. 2. Return emergency room if you have worsening nose bleed or unable to get it to stop. 3. Hold her Coumadin for the next 2 days. Please have your INR repeat on Sunday. Her INR in emergency room was 5.11 4. You need to have your packing removed in 24 hours, you may return here, or ER , or Primary care doctors office. Referrals: Yoan Gallegos MD [Primary Care Provider] - As per Instructions
[2017-11-19 15:44] LABS: PROTIME(PATIENT) 45.5 SEC (12.0-15.0)
[2017-11-19 15:56] LABS: INR 5.11 (0.83-1.16)
[2017-11-19 16:44] VITALS: BP 137/82
== END 2017-11-19 18:20 | disposition home or self-care (01) ==
LOC: CED 15:04
PROC: 2Y41X5Z Packing of Nasal Region using Packing Material (ICD-10-PCS; principal; 2017-11-19)
DX: R04.0 Epistaxis (principal); R79.1 Abnormal coagulation profile; I10 Essential (primary) hypertension; Z79.82 Long term (current) use of aspirin
CPT/HCPCS: 85610-PO

== ENCOUNTER 2017-11-19 22:25 | Emergency (ER) | payer OTHER ==
[2017-11-19] MEDS ORDERED: TRANEXAMIC ACID 1,000 MG/10 ML VIAL ONE (23:03)
[2017-11-19] MEDS ORDERED: OXYMETAZOLINE 30 ML NASAL SPRAY ONE (23:04)
[2017-11-19] MEDS ORDERED: SILVER NITRATE APPLICATOR 1 APPL TP ONE (23:04)
--- NOTE | 2017-11-19 23:55 | EDPHY ---
H & P Smoking Status: Never smoked Time Seen by Provider: 11/19/17 22:54 HPI/ROS: CHIEF COMPLAINT: Persisting epistaxis HISTORY OF PRESENT ILLNESS: 61-year-old female presents to the emergency department with persisting epistaxis. The patient was seen at [facility] in [place] earlier this afternoon and had cautery as well as packing placed in her right side of her nose. She states that the packing"fell out". She presents with persisting epistaxis now from both nostrils. She has an extensive cardiac history including aortic valve replacement. She was on Pradaxa and has been most recently changed to Coumadin. She had an INR taken earlier today which was 5.1. ROS: She denies chest pain, difficulty breathing, headache. (Katty Swann) Past Medical/Surgical History: Coronary artery disease, aortic valve replacement, seizure disorder, obstructive sleep apnea, hypertension, migraine headaches, osteoporosis (Katty Swann) Social History: and lives in [place] (Katty Swann) Physical Exam: On examination patient is currently bleeding out of both the left and the right nostril. She seems anxious. Her blood pressure is 166/101. There is bleeding noted in the posterior pharynx. No hemotympanum. Her lungs are clear to auscultation in heart is regular rate rhythm without murmur. (Katty Swann) Constitutional: Initial Vital Signs Temperature (C) 37.4 C 11/19/17 22:28 Heart Rate 61 11/19/17 22:28 Respiratory Rate 16 11/19/17 22:28 Blood Pressure 166/101 H 11/19/17 22:28 O2 Sat (%) 92 11/19/17 22:28 O2 Delivery Mode Room Air Allergies/Adverse Reactions: No Known Allergies Allergy (Verified 11/19/17 22:26) Home Medications: Medication Instructions Recorded Aspirin [Aspirin 81mg (*)] 81 mg PO DAILY 04/23/17 Cholecalciferol (Vitamin D3) 5,000 unit PO HS 04/23/17 [Vitamin D3] Dabigatran Etexilate Mesyl 150 mg PO BID 04/23/17 [Pradaxa 150 MG (*)] Lisinopril [Prinivil] 5 mg PO HS 04/23/17 Propranolol Sr [Inderal LA 80mg 80 mg PO DAILY 04/23/17 (*)] lamoTRIgine [Lamotrigine] 100 mg PO BID 04/23/17 Modafinil 07/24/17 Coumadin 11/19/17 Flonase Nasal [place] 11/19/17 Lexapro 11/19/17 Pradaxa 11/19/17 HYDROmorphone HCL [Dilaudid 2 mg 2 mg PO BID PRN #10 tab 11/20/17 (*)] MDM/Departure - [facility] Procedures: Procedure: Epistaxis control. After verbal consent was obtained, gauze soaked with TXA was placed in both the left and the right nostril. The patient was treated with [ ]. Following the procedure the patient was re-examined and the bleeding was well controlled. The patient tolerated the procedure well. The procedure was performed by myself. (Katty Swann) Medications Given: Discontinued Medications Oxycodone/Acetaminophen (Percocet 5/325) 1 tab PO EDNOW ONE Stop: 11/20/17 00:14 Last Admin: 11/20/17 00:17 Dose: 1 tab ED Course/Re-evaluation: 61-year-old female presents with persisting nose bleed. She was seen in the emergency department in [place] earlier today. She had an INR of 5.1 and. She was instructed to hold her Coumadin for the next 2 doses and follow up with ENT. She states the packing "fell out" of her nose. The patient did not tolerate a rhino rocket. She has already been cauterized multiple times with silver nitrate both the left and the right nostril. I did discuss this with Dr. Lujan. She recommended repacking her nose. I tried using a long Merocel packing, however the patient did not tolerate this. I spoke with on-call ENT PA, Mary Andino, who recommended pain control and bilateral nasal packing. The patient had bilateral short Merocel packing placed both the left and the right nostril. She will be observed for the next 30 min and as long as she has no recurring bleeding and feels comfortable, she will be discharged home. Care will be turned over to Dr. Lujan with the plan of discharge home in 30 min of no recurring bleeding. (Katty Swann) PHYSICIAN DOCUMENTATION: The patient was evaluated and managed by the Physician Personal Banking Representative. My co- signature indicates that I have reviewed this chart and I agree with the findings and plan of care as documented. I am the secondary supervising physician. I re-evaluated the patient after her packing and she had no recurrent bleeding. She will be discharged home. (Dayanna Lujan) - Depart Disposition: Home, Routine, Self-Care Clinical Impression: Epistaxis Condition: Good Instructions: Nosebleed (ED) Additional Instructions: Follow up with ENT tomorrow to recheck. Keep packing in your nose. Return if you have any other concerns. Referrals: Yoan Gallegos MD [Primary Care Provider] - As per Instructions Lauren Headley MD [Medical Doctor] - 1 day without fail ([facility] ENT) Jaden Cardozo MD [Medical Doctor] - 1 day without fail (On-call ENT)
[2017-11-20] MEDS ORDERED: OXYCODONE/APAP 5/325 TAB PO ONE (00:13)
[2017-11-20 01:09] VITALS: BP 158/89
== END 2017-11-20 01:09 | disposition home or self-care (01) ==
DX: R04.0 Epistaxis (principal); I25.10 Atherosclerotic heart disease of native coronary artery without angina pectoris; I10 Essential (primary) hypertension; Z79.01 Long term (current) use of anticoagulants; Z79.82 Long term (current) use of aspirin

== ENCOUNTER 2017-11-20 16:51 | Emergency (ER) | payer OTHER ==
--- NOTE | 2017-11-20 16:58 | EDPHY ---
H & P Time Seen by Provider: 11/20/17 16:57 HPI/ROS: CHIEF COMPLAINT: Facial pain HISTORY OF PRESENT ILLNESS: The patient presents the ED with complaints of facial pain over the past day. She has a history of recent nasal epistaxis treated with packing. She has anticoagulated for mechanical valve. She currently is being transitioned from Coumadin to Pradaxa. The patient denies fever, cough or congestion. She is scheduled to see ENT next week. REVIEW OF SYSTEMS: A comprehensive 10 point review of systems is otherwise negative aside from elements mentioned in the history of present illness. Source: Patient Exam Limitations: No limitations - Medical/Surgical History Hx Asthma: No Hx Chronic Respiratory Disease: No Hx Diabetes: No Hx Cardiac Disease: Yes Hx Renal Disease: No Hx Cirrhosis: No Hx Alcoholism: No Hx HIV/AIDS: No Hx Splenectomy or Spleen Trauma: No Other PMH: htn, migraine, heart issues, osteporosis, clotting disorder. two open hear surgeries (aortic valve replacement, and prostetic root). L knee angioplasty, cholecycstecomy.SEIZURE DISORDER/ARTHRITIS, sleep apnea with CPAP - Social History Smoking Status: Never smoked - Physical Exam Exam: General Appearance: Alert, no distress Eyes: Pupils equal and round no pallor or injection ENT, Mouth: Bilateral nasal packing Respiratory: There are no retractions, lungs are clear to auscultation Cardiovascular: Regular rate and rhythm Gastrointestinal: Abdomen is soft and nontender, no masses, bowel sounds normal Neurological: A&O, normal motor function, normal sensory exam, normal cranial nerves Skin: Warm and dry, no rashes Musculoskeletal: Neck is supple nontender Extremities: symmetrical, full range of motion Constitutional: Initial Vital Signs Temperature (C) 36.7 C 11/20/17 16:54 Heart Rate 63 11/20/17 16:54 Respiratory Rate 18 11/20/17 16:54 Blood Pressure 146/111 H 11/20/17 16:54 O2 Sat (%) 96 11/20/17 16:54 O2 Delivery Mode Room Air Allergies/Adverse Reactions: No Known Allergies Allergy (Verified 11/19/17 22:26) Home Medications: Medication Instructions Recorded Aspirin [Aspirin 81mg (*)] 81 mg PO DAILY 04/23/17 Cholecalciferol (Vitamin D3) 5,000 unit PO HS 04/23/17 [Vitamin D3] Dabigatran Etexilate Mesyl 150 mg PO BID 04/23/17 [Pradaxa 150 MG (*)] Lisinopril [Prinivil] 5 mg PO HS 04/23/17 Propranolol Sr [Inderal LA 80mg 80 mg PO DAILY 04/23/17 (*)] lamoTRIgine [Lamotrigine] 100 mg PO BID 04/23/17 Modafinil 07/24/17 Coumadin 11/19/17 Flonase Nasal [place] 11/19/17 Lexapro 11/19/17 Pradaxa 11/19/17 HYDROmorphone HCL [Dilaudid 2 mg 2 mg PO BID PRN #10 tab 11/20/17 (*)] Medical Decision Making - Diagnostics Imaging Results: Imaging Impressions Head CT 11/20/17 17:10 Impression: There has been development of right-sided pneumocephalus, with the apparent source of air likely a result of compromise of the right mastoids, which contain fluid. A discrete fracture line is not appreciated, although the largest focus of air is seen in association with the medial apex of the right mastoids. There is no acute intracranial hemorrhage or mass effect. If there is further clinical concern regarding the patient's symptoms, MR imaging of the brain (with and without contrast) is suggested, if not otherwise contraindicated. Correlation with a CBC is also suggested. Findings were discussed with Nic Saeed MD at 17:45, on 11/20/2017. ED Course/Re-evaluation: I reviewed the results of the patient's prior ED workup including her visit yesterday. CT scan does demonstrate some mild pneumocephalus. I reviewed the case with the ENT. The patient's CT scan was reviewed by Dr. Gonzáles. He feels the pneumocephalus as a result of the patient's nasal packing. The patient is currently on oral antibiotics. He does not feel an MRI is indicated at this point time. They would like to see the patient in follow-up. They did request that I did curbside Neurosurgery. I did curbside Dr. Srikanth Mack who reports they would simply wants to see the patient if she had any evidence of a CSF leak once her nasal packing was removed. The patient did receive 0.5 mg of IV Dilaudid. I re-evaluated the patient at 8:00 p.m.. She is feeling much better. She has no meningeal symptoms. She is afebrile. She currently is on amoxicillin. The patient will be discharged home with instructions to return to the ED for any worsening symptoms. Both Neurosurgery and ENT have recommended outpatient management for this condition. The on-call ENT surgeon did review the patient' s CT scan, Dr. Gonzáles, who specifically stated that an MRI with and without contrast was not indicated for further evaluation of her condition. Differential Diagnosis: Differential diagnosis considered includes intracranial hemorrhage, epidural abscess, sinusitis, mastoiditis - Data Points Laboratory Results: Laboratory Results 11/20/17 18:00 11/20/17 18:00 11/20/17 11/20/17 11/20/17 18:00 18:00 18:00 WBC 13.16 10^3/uL H 10^3/uL (3.80-9.50) RBC 4.02 10^6/uL L 10^6/uL (4.18-5.33) Hgb 13.6 g/dL g/dL (12.6-16.3) Hct 39.3 % % (38.0-47.0) MCV 97.8 fL fL (81.5-99.8) MCH 33.8 pg pg (27.9-34.1) MCHC 34.6 g/dL g/dL (32.4-36.7) RDW 12.4 % % (11.5-15.2) Plt Count 148 10^3/uL L 10^3/uL (150-400) MPV 11.5 fL fL (8.7-11.7) Neut % (Auto) 83.6 % H % (39.3-74.2) Lymph % (Auto) 6.2 % L % (15.0-45.0) [place] % (Auto) 9.6 % % (4.5-13.0) Eos % (Auto) 0.0 % L % (0.6-7.6) Baso % (Auto) 0.2 % L % (0.3-1.7) Nucleat RBC Rel Count 0.0 % % (0.0-0.2) Absolute Neuts (auto) 11.02 10^3/uL H 10^3/uL (1.70-6.50) Absolute Lymphs (auto) 0.81 10^3/uL L 10^3/uL (1.00-3.00) Absolute Monos (auto) 1.26 10^3/uL H 10^3/uL (0.30-0.80) Absolute Eos (auto) 0.00 10^3/uL L 10^3/uL (0.03-0.40) Absolute Basos (auto) 0.02 10^3/uL 10^3/uL (0.02-0.10) Absolute Nucleated RBC 0.00 10^3/uL 10^3/uL (0-0.01) Immature Gran % 0.4 % % (0.0-1.1) Immature Gran # 0.05 10^3/uL 10^3/uL (0.00-0.10) PT 23.1 SEC H SEC (12.0-15.0) INR 2.04 H (0.83-1.16) Sodium 136 mEq/L mEq/L (135-145) Potassium 3.8 mEq/L mEq/L (3.5-5.2) Chloride 102 mEq/L mEq/L (97-110) Carbon Dioxide 26 mEq/l mEq/l (22-31) Anion Gap 8 mEq/L mEq/L (8-16) BUN 18 mg/dL mg/dL (7-23) Creatinine 0.8 mg/dL mg/dL (0.6-1.0) Estimated GFR > 60 Glucose 136 mg/dL H mg/dL (70-100) Calcium 9.7 mg/dL mg/dL (8.5-10.4) Medications Given: Discontinued Medications Hydromorphone HCl (Dilaudid) 0.5 mg IVP EDNOW ONE Stop: 11/20/17 18:17 Last Admin: 11/20/17 18:24 Dose: 0.5 mg Ondansetron HCl (Zofran) 4 mg IVP EDNOW ONE Stop: 11/20/17 18:17 Last Admin: 11/20/17 18:23 Dose: 4 mg Departure - Departure Disposition: Home, Routine, Self-Care Clinical Impression: Pneumocephalus Condition: Good Instructions: Nosebleed (ED) Additional Instructions: 1. Please continue taking antibiotics as prescribed. 2. Follow up with ENT as scheduled. 3. Please stop taking oxycodone and begin Dilaudid as prescribed. 4. Return to the ED for markedly worsening headache, fever, neck stiffness or other concerns. Referrals: Yoan Gallegos MD [Primary Care Provider] - As per Instructions Prescriptions: HYDROmorphone HCL [Dilaudid 2 mg (*)] 2 mg PO BID PRN #10 tab PRN Reason: for pain
[2017-11-20 18:14] LABS: PLATELET COUNT 148 10^3/uL (150-400)
[2017-11-20] MEDS ORDERED: ONDANSETRON 4 MG/2 ML VIAL IVP ONE (18:16)
[2017-11-20] MEDS ORDERED: HYDROmorphONE/DILAUDID 2 MG/ML INJ IVP ONE (18:16)
[2017-11-20 18:23] LABS: INR 2.04 (0.83-1.16); PROTIME(PATIENT) 23.1 SEC (12.0-15.0)
[2017-11-20] MEDS ORDERED: AMOXICILLIN/CLAVULANATE POT 875/125 MG TAB PO ONE (18:59)
[2017-11-20 20:04] VITALS: BP 132/61
== END 2017-11-20 20:18 | disposition home or self-care (01) ==
DX: G93.89 Other specified disorders of brain (principal); I10 Essential (primary) hypertension; Z79.01 Long term (current) use of anticoagulants; Z79.82 Long term (current) use of aspirin
CPT/HCPCS: 96374; J1170; J2405

== ENCOUNTER → 2018-01-22 | Outpatient (CLI) | payer OTHER | LOC: FIMAGING 08:19 | DX: T82.858A Stenosis of other vascular prosthetic devices, implants and grafts, initial encounter (principal); I73.9 Peripheral vascular disease, unspecified ==

== ENCOUNTER → 2018-03-29 | Outpatient (CLI) | payer OTHER | LOC: CIMAGING 10:04 | PROVIDERS: ATTEND Internal Medicine | DX: Z12.31 Encounter for screening mammogram for malignant neoplasm of breast (principal) ==

== ENCOUNTER → 2018-05-06 | Outpatient (CLI) | payer OTHER | LOC: CIMAGING 08:53 | PROVIDERS: ATTEND Podiatrist Foot & Ankle Surgery | DX: M79.671 Pain in right foot (principal); Z96.698 Presence of other orthopedic joint implants; R93.7 Abnormal findings on diagnostic imaging of other parts of musculoskeletal system | CPT/HCPCS: 73630-PO ==

== ENCOUNTER → 2018-05-09 | Outpatient (CLI) | payer OTHER | LOC: CIMAGING 11:31 | PROVIDERS: ATTEND Podiatrist Foot & Ankle Surgery | DX: Z09 Encounter for follow-up examination after completed treatment for conditions other than malignant neoplasm (principal); Z96.7 Presence of other bone and tendon implants | CPT/HCPCS: 73700-PO ==

== ENCOUNTER → 2018-07-26 | Outpatient (CLI) | payer OTHER | LOC: FIMAGING 09:12 | PROVIDERS: ATTEND Podiatrist Foot & Ankle Surgery | DX: Z13.820 Encounter for screening for osteoporosis (principal); M81.0 Age-related osteoporosis without current pathological fracture; Z78.0 Asymptomatic menopausal state ==

== ENCOUNTER → 2018-07-30 | Outpatient (CLI) | payer OTHER | LOC: CIMAGING 13:05 | PROVIDERS: ATTEND Podiatrist Foot & Ankle Surgery | DX: Z96.698 Presence of other orthopedic joint implants (principal); Z98.890 Other specified postprocedural states | CPT/HCPCS: 73630-PO ==

== ENCOUNTER → 2018-08-15 | Outpatient (CLI) | payer OTHER | LOC: BMCIMAGING 11:32 | PROVIDERS: ATTEND Family Medicine | DX: S80.12XA Contusion of left lower leg, initial encounter (principal) ==

== ENCOUNTER → 2018-10-15 | Outpatient (CLI) | payer OTHER | LOC: BMCIMAGING 13:47 | PROVIDERS: ATTEND Podiatrist Foot & Ankle Surgery | DX: Z09 Encounter for follow-up examination after completed treatment for conditions other than malignant neoplasm (principal); M25.80 Other specified joint disorders, unspecified joint ==

== ENCOUNTER → 2018-10-19 | Outpatient (CLI) | payer OTHER | LOC: FCPNEURO 21:00 | PROVIDERS: ATTEND Psychiatry & Neurology Sleep Medicine | DX: G47.33 Obstructive sleep apnea (adult) (pediatric) (principal) ==

== ENCOUNTER → 2018-11-15 | Outpatient (CLI) | payer OTHER | LOC: BMCIMAGING 11:22 | PROVIDERS: ATTEND Internal Medicine | DX: R07.89 Other chest pain (principal) | CPT/HCPCS: 71101-PO ==

== ENCOUNTER 2018-12-23 15:27 | Emergency (ER) | payer OTHER | END 2018-12-23 17:35 | disposition home or self-care (01) | LOC: CED 15:27 ==